=== PATIENT | male | born 1985 | race Caucasian/White ===

== ENCOUNTER → 2017-09-17 | Outpatient (CLI) | payer OTHER ==
[~2017-09-17] MED LIST: ALPR1TAB3 PO; AZIT500T26 PO; MULT-506 PO
--- NOTE | 2017-09-17 13:38 | DIAGNOSTIC IMAGING REPORT ---
SCROTAL ULTRASOUND CLINICAL HISTORY: Dysuria. COMPARISON STUDY: None. TECHNIQUE: Grayscale and color and duplex Doppler sonography of the scrotum was performed. FINDINGS: The right testis measures 4.5 x 2.2 x 2.9 cm and the left measures 4.7 x 2.2 x 3 cm. There is no testicular mass. Color flow within each testis is symmetric. There are small bilateral hydroceles. There is no evidence for epididymitis. IMPRESSION: 1. Normal sonographic appearance of the testes. 2. No evidence for epididymitis. Electronically signed by: Enrique Kong M.D. 09/17/2017 1:36 PM Dictated Date/Time: 09/17/2017 1:35 PM
== END | disposition home or self-care (01) ==
LOC: C.ULTR 12:50
PROVIDERS: ATTEND Urology
DX: R30.0 Dysuria (principal)